=== PATIENT | male | born 1955 | race Caucasian/White ===

== ENCOUNTER → 2021-06-26 | Outpatient (CLI) | payer MEDICARE, OTHER ==
[~2021-06-26] MED LIST: CYANOCOBAL1000 MCG/1 INJ; CYMBALTA60 MG PO; GLUCOPHAGE500 MG PO; KEPPRA 500 MG500 MG PO; KLONOPIN1 MG PO; LISINOPRIL5 MG PO; MINOCYCLINE HCL50 MG PO; SERTRALINE HCL50 MG PO; TESTOSTERON100 MG/ML IM; TRAZODONE HCL50 MG PO; ZOCOR20 MG PO; ZOLOFT100 MG PO
== END ==
LOC: HEART 5 07:38
DX: R07.9 Chest pain, unspecified (principal)
CPT/HCPCS: 78452; 93306; A9502; J2785

== ENCOUNTER → 2022-01-07 | Outpatient (CLI) | payer MEDICARE, OTHER | LOC: KOH-I 12:29 | DX: M54.50 Low back pain, unspecified (principal); M47.816 Spondylosis without myelopathy or radiculopathy, lumbar region; M43.16 Spondylolisthesis, lumbar region | CPT/HCPCS: 72100 ==

== ENCOUNTER → 2022-01-15 | Outpatient (CLI) | payer MEDICARE, OTHER | LOC: EMI 14:23 | DX: M54.50 Low back pain, unspecified (principal); M51.36 Other intervertebral disc degeneration, lumbar region; M51.37 Other intervertebral disc degeneration, lumbosacral region | CPT/HCPCS: 72158; A9577 ==

== ENCOUNTER → 2022-01-21 | Outpatient (CLI) | payer MEDICARE, OTHER ==
[~2022-01-21] MED LIST changes: +ASPIRIN EC81 MG PO; +IBU800 MG PO; +KEPPRA750 MG PO; +METFORMIN HCL500 MG PO; +METOPROLOL TART25 MG PO; +MINOCYCLINE HC100 MG PO; +NEURONTIN100 MG PO; +ZOLOFT50 MG PO
== END ==
LOC: EXRD 09:00
DX: M43.16 Spondylolisthesis, lumbar region (principal)
CPT/HCPCS: 77080

== ENCOUNTER → 2022-01-28 | Outpatient (CLI) | payer MEDICARE, OTHER | LOC: LAB 11:37 | DX: Z01.812 Encounter for preprocedural laboratory examination (principal) | CPT/HCPCS: 36415; 86850; 86900; 86901 ==

== ENCOUNTER 2022-01-29 05:16 | Inpatient (IN) | payer MEDICARE, OTHER ==
[~2022-01-29] VITALS: Ht 182.9 cm; Wt 112.5 kg
[2022-01-29 13:55] LABS: HEMOGLOBIN 13.6 gm/dl (14.0-17.5); RED BLOOD COUNT 4.34 M/UL (4.20-5.50); WHITE BLOOD COUNT 13.3 K/UL (4.5-11.0)
[2022-01-29 14:18] LABS: BUN/CREATININE RATIO 18 (0-10)
[2022-01-30 05:48] LABS: WHITE BLOOD COUNT 15.5 K/UL (4.5-11.0)
[2022-01-30 05:50] LABS: RED BLOOD COUNT 3.83 M/UL (4.20-5.50)
[2022-01-30 06:16] LABS: BUN/CREATININE RATIO 24 (0-10)
[2022-01-31 03:27] LABS: HEMOGLOBIN 11.4 gm/dl (14.0-17.5); RED BLOOD COUNT 3.57 M/UL (4.20-5.50); WHITE BLOOD COUNT 12.8 K/UL (4.5-11.0)
[2022-01-31 03:45] LABS: BUN/CREATININE RATIO 25 (0-10)
[2022-02-01 17:00] LABS: HEMOGLOBIN 11.4 gm/dl (14.0-17.5); RED BLOOD COUNT 3.59 M/UL (4.20-5.50); WHITE BLOOD COUNT 12.3 K/UL (4.5-11.0)
[2022-02-01 17:18] LABS: BUN/CREATININE RATIO 17 (0-10)
[2022-02-02 09:58] LABS: HEMOGLOBIN 10.9 gm/dl (14.0-17.5); RED BLOOD COUNT 3.43 M/UL (4.20-5.50)
[2022-02-02 10:00] LABS: WHITE BLOOD COUNT 9.2 K/UL (4.5-11.0)
[2022-02-02 10:37] LABS: BUN/CREATININE RATIO 19 (0-10)
[2022-02-03 11:02] LABS: HEMOGLOBIN 11.3 gm/dl (14.0-17.5); RED BLOOD COUNT 3.51 M/UL (4.20-5.50); WHITE BLOOD COUNT 8.9 K/UL (4.5-11.0)
[2022-02-03 11:30] LABS: BUN/CREATININE RATIO 20 (0-10)
[2022-02-04 17:55] LABS: HEMOGLOBIN 11.2 gm/dl (14.0-17.5)
[2022-02-04 21:45] LABS: HEMOGLOBIN 10.8 gm/dl (14.0-17.5); RED BLOOD COUNT 3.43 M/UL (4.20-5.50)
[2022-02-04 21:50] LABS: WHITE BLOOD COUNT 26.2 K/UL (4.5-11.0)
[2022-02-05 07:38] LABS: RED BLOOD COUNT 2.44 M/UL (4.20-5.50); WHITE BLOOD COUNT 22.5 K/UL (4.5-11.0)
[2022-02-05 07:39] LABS: HEMOGLOBIN 7.6 gm/dl (14.0-17.5)
[2022-02-06 05:39] LABS: HEMOGLOBIN 8.4 gm/dl (14.0-17.5); RED BLOOD COUNT 2.82 M/UL (4.20-5.50); WHITE BLOOD COUNT 18.1 K/UL (4.5-11.0)
[2022-02-06 06:45] LABS: BUN/CREATININE RATIO 31 (0-10)
[2022-02-06 14:12] LABS: WHITE BLOOD COUNT 22.1 K/UL (4.5-11.0)
[2022-02-06 14:20] LABS: RED BLOOD COUNT 3.63 M/UL (4.20-5.50)
[2022-02-07 05:04] LABS: HEMOGLOBIN 9.8 gm/dl (14.0-17.5); WHITE BLOOD COUNT 21.4 K/UL (4.5-11.0)
[2022-02-07 05:07] LABS: RED BLOOD COUNT 3.26 M/UL (4.20-5.50)
[2022-02-07 05:26] LABS: BUN/CREATININE RATIO 47 (0-10)
[2022-02-07 14:38] LABS: BUN/CREATININE RATIO 49 (0-10)
[2022-02-08 04:00] LABS: HEMOGLOBIN 8.2 gm/dl (14.0-17.5)
[2022-02-08 04:09] LABS: RED BLOOD COUNT 2.77 M/UL (4.20-5.50)
[2022-02-08 04:13] LABS: BUN/CREATININE RATIO 48 (0-10)
[2022-02-09 06:15] LABS: HEMOGLOBIN 8.4 gm/dl (14.0-17.5); RED BLOOD COUNT 2.8 M/UL (4.20-5.50); WHITE BLOOD COUNT 16.6 K/UL (4.5-11.0)
[2022-02-09 06:49] LABS: BUN/CREATININE RATIO 45 (0-10)
[2022-02-10 05:22] LABS: HEMOGLOBIN 8.6 gm/dl (14.0-17.5); RED BLOOD COUNT 2.89 M/UL (4.20-5.50); WHITE BLOOD COUNT 15.8 K/UL (4.5-11.0)
[2022-02-10 05:30] LABS: BUN/CREATININE RATIO 45 (0-10)
[2022-02-11 05:24] LABS: BUN/CREATININE RATIO 43 (0-10)
[2022-02-11 06:02] LABS: HEMOGLOBIN 9.2 gm/dl (14.0-17.5); RED BLOOD COUNT 3.06 M/UL (4.20-5.50); WHITE BLOOD COUNT 18.2 K/UL (4.5-11.0)
[2022-02-12 05:14] LABS: HEMOGLOBIN 8.5 gm/dl (14.0-17.5); RED BLOOD COUNT 2.85 M/UL (4.20-5.50); WHITE BLOOD COUNT 14.9 K/UL (4.5-11.0)
[2022-02-12 05:56] LABS: BUN/CREATININE RATIO 39 (0-10)
[2022-02-13 03:16] LABS: HEMOGLOBIN 8.8 gm/dl (14.0-17.5); RED BLOOD COUNT 2.94 M/UL (4.20-5.50); WHITE BLOOD COUNT 14.5 K/UL (4.5-11.0)
[2022-02-13 03:40] LABS: BUN/CREATININE RATIO 36 (0-10)
[2022-02-14 02:28] LABS: HEMOGLOBIN 9.1 gm/dl (14.0-17.5); RED BLOOD COUNT 3.01 M/UL (4.20-5.50); WHITE BLOOD COUNT 13.9 K/UL (4.5-11.0)
[2022-02-14 02:39] LABS: BUN/CREATININE RATIO 29 (0-10)
[2022-02-15 01:44] LABS: HEMOGLOBIN 9.9 gm/dl (14.0-17.5); RED BLOOD COUNT 3.3 M/UL (4.20-5.50); WHITE BLOOD COUNT 14.6 K/UL (4.5-11.0)
[2022-02-15 02:09] LABS: BUN/CREATININE RATIO 28 (0-10)
[2022-02-16 02:35] LABS: HEMOGLOBIN 8.4 gm/dl (14.0-17.5)
[2022-02-16 02:41] LABS: RED BLOOD COUNT 2.83 M/UL (4.20-5.50)
[2022-02-16 02:56] LABS: BUN/CREATININE RATIO 33 (0-10)
[2022-02-17 02:11] LABS: HEMOGLOBIN 9.2 gm/dl (14.0-17.5); RED BLOOD COUNT 3.08 M/UL (4.20-5.50); WHITE BLOOD COUNT 11.9 K/UL (4.5-11.0)
[2022-02-17 02:29] LABS: BUN/CREATININE RATIO 32 (0-10)
[2022-02-18 03:04] LABS: HEMOGLOBIN 9.1 gm/dl (14.0-17.5); RED BLOOD COUNT 3.01 M/UL (4.20-5.50); WHITE BLOOD COUNT 12.5 K/UL (4.5-11.0)
[2022-02-18 03:39] LABS: BUN/CREATININE RATIO 23 (0-10)
--- NOTE | 2022-02-18 15:36 | NUR ---
NOTIFIED DR RIOS OF PTS CHEST XRAY RESULTS.
[2022-02-19 01:58] LABS: RED BLOOD COUNT 3.03 M/UL (4.20-5.50); WHITE BLOOD COUNT 12.4 K/UL (4.5-11.0)
[2022-02-19 02:26] LABS: BUN/CREATININE RATIO 24 (0-10)
--- NOTE | 2022-02-20 13:02 | NUR ---
REPORT GIVEN TO [place] AT [facility] WITH ALL QUESTIONS ASKED AND ANSWERED. [facility] NOTIFIED OF NEED FOR TRANSPORT
== END 2022-02-20 13:35 | DRG 453 ==
LOC: OR 05:16 → CCU 14:33 → PROG CARE 01-30 21:39 → CCU 02-04 13:28 → PROG CARE 02-12 14:51
PROVIDERS: Internal Medicine; Internal Medicine Pulmonary Disease; Nurse Practitioner Family; ADMIT Orthopaedic Surgery
PROC: 0SB20ZZ Excision of Lumbar Vertebral Disc, Open Approach (ICD-10-PCS; 2022-01-29)
PROC: 4A11X4G Monitoring of Peripheral Nervous Electrical Activity, Intraoperative, External Approach (ICD-10-PCS; 2022-01-29)
PROC: 0SG10AJ Fusion of 2 or more Lumbar Vertebral Joints with Interbody Fusion Device, Posterior Approach, Anterior Column, Open Approach (ICD-10-PCS; principal; 2022-01-29 07:30)
PROC: 0RG7071 Fusion of 2 to 7 Thoracic Vertebral Joints with Autologous Tissue Substitute, Posterior Approach, Posterior Column, Open Approach (ICD-10-PCS; 2022-02-04)
PROC: 0SG3071 Fusion of Lumbosacral Joint with Autologous Tissue Substitute, Posterior Approach, Posterior Column, Open Approach (ICD-10-PCS; 2022-02-04)
PROC: 0RGA071 Fusion of Thoracolumbar Vertebral Joint with Autologous Tissue Substitute, Posterior Approach, Posterior Column, Open Approach (ICD-10-PCS; 2022-02-04)
PROC: 0SG1071 Fusion of 2 or more Lumbar Vertebral Joints with Autologous Tissue Substitute, Posterior Approach, Posterior Column, Open Approach (ICD-10-PCS; 2022-02-04)
PROC: 0SB20ZZ Excision of Lumbar Vertebral Disc, Open Approach (ICD-10-PCS; 2022-02-04)
PROC: 01NB0ZZ Release Lumbar Nerve, Open Approach (ICD-10-PCS; 2022-02-04)
PROC: 00QT0ZZ Repair Spinal Meninges, Open Approach (ICD-10-PCS; 2022-02-04)
PROC: 00NY0ZZ Release Lumbar Spinal Cord, Open Approach (ICD-10-PCS; 2022-02-04)
PROC: 01NR0ZZ Release Sacral Nerve, Open Approach (ICD-10-PCS; 2022-02-04)
PROC: 4A11X4G Monitoring of Peripheral Nervous Electrical Activity, Intraoperative, External Approach (ICD-10-PCS; 2022-02-04)
PROC: 30233N1 Transfusion of Nonautologous Red Blood Cells into Peripheral Vein, Percutaneous Approach (ICD-10-PCS; 2022-02-04)
PROC: 30233L1 Transfusion of Nonautologous Fresh Plasma into Peripheral Vein, Percutaneous Approach (ICD-10-PCS; 2022-02-04)
PROC: 0BH17EZ Insertion of Endotracheal Airway into Trachea, Via Natural or Artificial Opening (ICD-10-PCS; 2022-02-04)
PROC: 5A1945Z Respiratory Ventilation, 24-96 Consecutive Hours (ICD-10-PCS; 2022-02-04)
PROC: 5A0945A Assistance with Respiratory Ventilation, 24-96 Consecutive Hours, High Flow/Velocity Cannula (ICD-10-PCS; 2022-02-08)
PROC: 4A00X4Z Measurement of Central Nervous Electrical Activity, External Approach (ICD-10-PCS; 2022-02-15)
PROC: B24BZZZ Ultrasonography of Heart with Aorta (ICD-10-PCS; 2022-02-19)
PROC: B24BZZZ Ultrasonography of Heart with Aorta (ICD-10-PCS; 2022-02-19)
DX: M48.061 Spinal stenosis, lumbar region without neurogenic claudication (principal); T81.19XA Other postprocedural shock, initial encounter; G92.8 Other toxic encephalopathy; Z20.822 Contact with and (suspected) exposure to COVID-19; N17.0 Acute kidney failure with tubular necrosis; J96.01 Acute respiratory failure with hypoxia; J69.0 Pneumonitis due to inhalation of food and vomit; A41.9 Sepsis, unspecified organism; G97.41 Accidental puncture or laceration of dura during a procedure; M62.82 Rhabdomyolysis; E87.2 Acidosis; D62 Acute posthemorrhagic anemia; E87.0 Hyperosmolality and hypernatremia; J98.11 Atelectasis; D72.828 Other elevated white blood cell count; E83.51 Hypocalcemia; R19.7 Diarrhea, unspecified; E88.09 Other disorders of plasma-protein metabolism, not elsewhere classified; R74.01 Elevation of levels of liver transaminase levels; L89.812 Pressure ulcer of head, stage 2; M51.36 Other intervertebral disc degeneration, lumbar region; I10 Essential (primary) hypertension; F41.9 Anxiety disorder, unspecified; E66.9 Obesity, unspecified; E78.5 Hyperlipidemia, unspecified; F32.A Depression, unspecified; F41.0 Panic disorder [episodic paroxysmal anxiety]; Y83.9 Surgical procedure, unspecified as the cause of abnormal reaction of the patient, or of later complication, without mention of misadventure at the time of the procedure; E11.65 Type 2 diabetes mellitus with hyperglycemia; I27.20 Pulmonary hypertension, unspecified; M43.16 Spondylolisthesis, lumbar region; M21.371 Foot drop, right foot; G40.909 Epilepsy, unspecified, not intractable, without status epilepticus; Z99.3 Dependence on wheelchair; Z98.890 Other specified postprocedural states; Z82.49 Family history of ischemic heart disease and other diseases of the circulatory system; Z79.01 Long term (current) use of anticoagulants; Z79.82 Long term (current) use of aspirin; Z68.33 Body mass index [BMI] 33.0-33.9, adult
CPT/HCPCS: ECHO; 36415; 36430; 36600; 70450; 70551; 71045; 72070; 72100; 72110; 76000; 80048; 80053; 80202; 81001; 82140; 82550; 82553; 82607; 82728; 82746; 82803; 82962; 83540; 83550; 83605; 83735; 83880; 84100; 84132; 84484; 85014; 85018; 85025; 85027; 85610; 86140; 86850; 86900; 86901; 86920; 86927; 87040; 87070; 87086; 87205; 87449; 92507; 92526; 92610; 93005; 93306; 94002; 94003; 94760; 95816; 97110; 97110-GP-CQ; 97162; 97164; 97167; 97168; 97530; 97530-GP-CQ; 97535; C1713; C1762; C9113; J0610; J0690; J1040; J1100; J1170; J1200; J1205; J1335; J1644; J1650; J1885; J2001; J2250; J2370; J2405; J2543; J2704; J3010; J3370; J3475; J3480; J3486; J7030; J7040; J7050; J7070; J7120; P9016; P9017; P9045; P9047; U0002

== ENCOUNTER 2022-03-15 10:25 | Emergency (ER) | payer MEDICARE, OTHER | END 2022-03-15 13:42 | disposition home or self-care (01) | LOC: ER1 10:25 | DX: Z04.3 Encounter for examination and observation following other accident (principal); E11.40 Type 2 diabetes mellitus with diabetic neuropathy, unspecified; I10 Essential (primary) hypertension | CPT/HCPCS: 72072; 72100; 99283 ==